=== PATIENT | male | born 1990 | race Caucasian/White ===

== ENCOUNTER 2019-02-07 01:33 | Emergency (ER) | payer SELFPAY ==
[~2019-02-07] VITALS: Ht 182.9 cm; Wt 171.0 kg
[2019-02-07 01:35] VITALS: BP 150/85
--- NOTE | 2019-02-07 01:35 | NUR ---
TO BED # 07 AMBULATORY
--- NOTE | 2019-02-07 01:44 | NUR ---
Dr. Andersen evaluating patient at bedside.
--- NOTE | 2019-02-07 01:45 | NUR ---
PT BIB SELF C/O TROUBLE BREATHING WHILE SLEEPING. PT GIRLFRIEND STATES PT WAS IN AND OUT OF SLEEP, GIRLFRIEND WAS TALKIN TO PT AND SEEMED LIKE PT WAS RESPONDING, GIRLFRIEND STATES PTS LEGS STARTED SHAKING AND SHE ROLLED HIM OVER ON THE SIDE OF THE BED AND HIS EYE "WERE BLOOD SHOT RED AND HE WAS CRYING", PT DOES NOT RECALL ANY OF THE EVENTS GIRLFRIEND HAS DISCRIBED. PT STATES 0/10 PAIN. --PT ACTING APPOPRIATLY, SPEAKING IN CLEAR AND COMPLETE SENTENCES. BREATHING EQUAL AND UNLABORED. [facility] PMH: DENIES
--- NOTE | 2019-02-07 02:10 | NUR ---
PT TO CT VIA JADE BY [employer].
[2019-02-07 02:13] LABS: BASOPHILS # (AUTO) 0.1 K/uL (0.00-0.22); BASOPHILS % (AUTO) 0.8 % (0.0-2.0); EOSINOPHILS # (AUTO) 0.3 K/uL (0-0.4); EOSINOPHILS % (AUTO) 1.9 % (0.0-4.0); HEMATOCRIT 39.1 % (36-52); LYMPHOCYTES # (AUTO) 4.3 K/uL (2.0-11.5); LYMPHOCYTES % (AUTO) 29.2 % (20.5-51.1); MEAN CORPUSCULAR HEMOGLOBIN 28 pg (27-31); MEAN CORPUSCULAR HGB CONC 33 g/dL (33-37); MEAN CORPUSCULAR VOLUME 84.3 fL (80-94); MONOCYTES # (AUTO) 0.8 K/uL (0.8-1.0); MONOCYTES % (AUTO) 5.2 % (1.7-9.3); NEUTROPHILS # (AUTO) 9.2 K/uL (1.8-7.7); NEUTROPHILS % (AUTO) 62.9 % (42.2-75.2); PLATELET COUNT (AUTO) 332 K/uL (140-450); RED BLOOD CELL COUNT(AUTO) 4.64 MIL/uL (4.20-6.10); RED CELL DISTRIBUTION WIDTH 12.9 % (11.6-13.7); WHITE BLOOD COUNT (AUTO) 14.6 K/uL (4.8-10.8)
[2019-02-07 02:28] LABS: ANION GAP 12.2 (8-16); CARBON DIOXIDE 27.4 mmol/L (21-32); CREATININE 0.8 mg/dL (0.7-1.3); POTASSIUM 3.6 mmol/L (3.5-5.1)
[2019-02-07 02:33] LABS: ALBUMIN 3.2 g/dL (3.4-5.0); TOTAL BILIRUBIN 0.2 mg/dL (0.0-1.0)
[2019-02-07 02:41] LABS: APPEARANCE,URINE CLEAR (CLEAR); BILIRUBIN,URINE NEGATIVE (NEGATIVE); BLOOD, URINE NEGATIVE (NEGATIVE); COLOR,URINE YELLOW (YELLOW); LEUKOCYTE ESTERASE ,URINE NEGATIVE (NEGATIVE); NITRITE, URINE NEGATIVE (NEGATIVE); UGLUCOSE 3+ (NEGATIVE)
[2019-02-07 02:56] LABS: RBC,URINE 0-5 /HPF (0-5); WBC,URINE 0-5 /HPF (0-5)
[2019-02-07 02:57] VITALS: BP 150/85
--- NOTE | 2019-02-07 02:58 | NUR ---
Patient discharged with v/s stable. Written and verbal after care instructions given and explained. Patient verbalized understanding. Ambulatory with steady gait. All questions addressed prior to discharge. Advised to follow up with PMD.
== END 2019-02-07 02:58 | disposition home or self-care (01) ==
LOC: MED 01:33
DX: R06.02 Shortness of breath (principal); R73.9 Hyperglycemia, unspecified; I10 Essential (primary) hypertension; E66.01 Morbid (severe) obesity due to excess calories; Z68.43 Body mass index [BMI] 50.0-59.9, adult
CPT/HCPCS: 36415; 70450; 71045; 80053; 81001; 85025; 93005; 99284; Q0092

== ENCOUNTER 2019-09-27 01:45 | Emergency (ER) | payer SELFPAY ==
[~2019-09-27] VITALS: Ht 182.9 cm; Wt 179.2 kg
[2019-09-27 02:09] VITALS: BP 140/101
--- NOTE | 2019-09-27 02:13 | NUR ---
PT TAKEN TO BED 6
--- NOTE | 2019-09-27 02:36 | NUR ---
PT C/O PENILE PAIN X2 WEEKS. PT STATES HAVING WOUND ON FORE SKIN ON PENIS. PT STATES PENIS IS RETRACTED IN AND HIS BODY AND IT IS PAINFUL TO URINATE. PT STATES HE HAS TO PULL FORESKIN BACK AND FORESKIN CRACKS. PT ALSO C/O LEFT EYE PAIN AND DISCHARGE. PT HAVING DISCHARGE FROM EYE X 1 DAY. PT VISUAL ACUITY 20/20 BOTH EYES 30/20 LEFT EYE 20/20 RIGHT EYE.
--- NOTE | 2019-09-27 02:37 | NUR ---
PT DENIES DISCHARGE FROM PENIS, PT STATES LAST SEXUALLY ACTIVE X6 WEEKS AGO.
[2019-09-27 04:05] VITALS: BP 140/101
--- NOTE | 2019-09-27 04:05 | NUR ---
Patient discharged with v/s stable. Written and verbal after care instructions given and explained. Patient alert, oriented and verbalized understanding of instructions. Ambulatory with steady gait. All questions addressed prior to discharge. ID band removed. Patient advised to follow up with PMD. Rx of METFORMIN, KEFLEX given. Patient educated on indication of medication including possible reaction and side effects. Opportunity to ask questions provided and answered.
[2019-09-27 06:10] LABS: APPEARANCE,URINE CLEAR (CLEAR); BILIRUBIN,URINE NEGATIVE (NEGATIVE); BLOOD, URINE NEGATIVE (NEGATIVE); COLOR,URINE YELLOW (YELLOW); LEUKOCYTE ESTERASE ,URINE NEGATIVE (NEGATIVE); NITRITE, URINE NEGATIVE (NEGATIVE); PH,URINE 6.5 (5.0-9.0); UGLUCOSE 3+ (NEGATIVE)
[2019-09-27 06:23] LABS: RBC,URINE 0-5 /HPF (0-5)
[2019-09-27 06:24] LABS: WBC,URINE 0-5 /HPF (0-5)
[2019-09-29 06:11] LABS: CHLAMYDIA TRACHOMATIS AMP DNA Negative (Negative)
== END 2019-09-27 04:05 | disposition home or self-care (01) ==
LOC: MED 01:45
DX: N48.1 Balanitis (principal); R73.9 Hyperglycemia, unspecified; H57.9 Unspecified disorder of eye and adnexa
CPT/HCPCS: 36415; 81001; 87491; 99283